=== PATIENT | female | born 1945 | race Caucasian/White ===

== ENCOUNTER 2021-09-14 10:32 | Day surgery (SDC) | payer MEDICARE, OTHER ==
[~2021-09-14] VITALS: Ht 160 cm; Wt 109.5 kg
[~2021-09-14 10:32] MED LIST: AMLODIPINE BESYL5 MG PO; ASPIRIN81 MG PO; METOPROLOL SUCC25 MG PO; NIACIN500 M1 PO
--- NOTE | 2021-09-14 10:50 | NUR ---
both nares swabbed for covid-19 without complication. sample taken to lab.
--- NOTE | 2021-09-14 15:02 | NUR ---
09/14/21 1502 Melissa Quinonez 1409 PT ARRIVED IN PACU SLEEPY WITH NO C/O'S. ABD SOFT AND PASSING FLATUS. 1420 SITTING UP IN BED SIPPING ON JUICE. 1430 DR AT BEDSIDE. ALL QUESTIONS ANSWERED. 1445 UP TO BATHROOM. VOIDED. BACK AT BEDSIDE GETTING DRESSED. 1455 DC INSTRUCTIONS GIVEN. LEFT VIA W/C.
--- NOTE | 2021-09-16 10:08 | OR ---
[facility] [address] [place], [place] [address] Signed DATE OF OPERATION: 09/14/2021 SURGEON: David Smith MD PREOPERATIVE DIAGNOSES: 1. History of diverticulitis on March 22, 2021 ([facility]). 2. COVID infection in July; asymptomatic, currently COVID test still positive. POSTOPERATIVE DIAGNOSIS: Sigmoid and left-sided diverticulosis, otherwise normal. PROCEDURE: Total colonoscopy to cecum with biopsy of cecum, sigmoid, and rectum. ANESTHESIA: Intravenous sedation, fentanyl 100 mcg and Versed 4 mg. INDICATIONS: This 76-year-old white woman is a patient of RIVKA Gonzalez. The patient lives in [place], [place]. Last summer, on March 22, 2021, she was evaluated for acute diverticulitis including left lower abdominal pain at [facility] including a CT scan, which showed findings typical of diverticular disease. She suffered COVID disease in July, but recovered promptly from that. She was referred for consideration of colonoscopy given interval time since last colonoscopy as well as her diverticular episode in March. She currently has no bleeding, diarrhea, or constipation. She has no fever, no taste or olfactory loss, although a preoperative COVID test was obtained and found to be positive. She is considered safe for colonoscopy at this time. The risks of bleeding, infection, and perforation related to colonoscopy was reviewed with her. She understands and wished to proceed. FINDINGS: The prep was good. Complete colonoscopy was undertaken of the cecum without question. Brief intubation of the ileum showed it to be normal. There were numerous small and large diverticula of the sigmoid and left colon. There was no actual evidence of polyps or cancer. She had no active colitis. Biopsies were obtained of the cecum, the sigmoid, and the rectum to assess for colitis, however. DESCRIPTION OF PROCEDURE: The patient was brought to the endoscopy suite and placed in lateral decubitus position. Notably, a preoperative COVID test was found to be positive, but given that timeframe Electronically Signed By: DAVID SMITH MD 09/16/21 1008 PATIENT NAME: MARSHALL JONES OPERATIVE REPORT DATE OF : 47 REPORT #: [id number] PHYSICIAN: DAVID SMITH MD PCP: IRIS MALIK [facility] REPORT IS CONFIDENTIAL AND NOT TO BE RELEASED WITHOUT AUTHORIZATION [facility] [address] [place] [id number] Signed of her infection, it was considered positive but noninfective and on that basis, proceeding with colonoscopy was deemed reasonable. She was given intravenous sedation to the point of slurred speech and nystagmus with full cardiopulmonary monitoring. Digital rectal examination was normal. An Olympus video colonoscope was passed into the rectum and manipulated throughout the colon noting numerous diverticula of the sigmoid and left colon. Scope was ultimately passed to the cecum. Brief intubation of the ileum was undertaken. The scope was withdrawn. 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 The scope was withdrawn and examination throughout showed no sign of abnormality until the left colon, where numerous diverticula were noted. Biopsies taken in the mid sigmoid. There was no clear evidence of colitis proper. Further withdrawal of scope allowed for retroflexed view, which was normal. Biopsy was taken from the rectum to assess for colitis. The scope was straightened, withdrawn, and removed. The patient was taken to the recovery room in good condition. CONCLUDING DIAGNOSIS: Significant diverticular changes. No evidence of malignancy or colitis. PLAN: Recommend high-fiber diet and/or consideration of a fiber supplement such as Metamucil powder one scoop daily. As she has no family history of colon cancer and no current findings of polyps, future colonoscopy would be considered on a as needed basis. The patient will return to the ongoing care of RIVKA Gonzalez. MD SAM Guadarrama/WILLISL /[id number] cc: RIVKA Amador Copies: IRIS MALIK Electronically Signed By: DAVID SMITH MD 09/16/21 1008 PATIENT NAME: MARSHALL JONES OPERATIVE REPORT DATE OF : 47 REPORT #: [id number] PHYSICIAN: DAVID SMITH MD PCP: IRIS MALIK REPORT IS CONFIDENTIAL AND NOT TO BE RELEASED WITHOUT AUTHORIZATION [facility] [address] [facility] [place], [place] [address] Signed ~ Electronically Signed By: DAVID SMITH MD 09/16/21 1008 PATIENT NAME: ROBERTMARSHALL OPERATIVE REPORT DATE OF : 47 REPORT #: [id number] PHYSICIAN: DAVID SMITH MD PCP: IRIS MALIK [facility] REPORT IS CONFIDENTIAL AND NOT TO BE RELEASED WITHOUT AUTHORIZATION
== END 2021-09-14 14:55 | disposition home or self-care (01) ==
LOC: OPS 10:32 → DS 10:32 → OPS 13:00
PROVIDERS: ATTEND Surgery
PROC: 0DBN8ZX Excision of Sigmoid Colon, Via Natural or Artificial Opening Endoscopic, Diagnostic (ICD-10-PCS; 2021-09-14)
PROC: 0DBH8ZX Excision of Cecum, Via Natural or Artificial Opening Endoscopic, Diagnostic (ICD-10-PCS; principal; 2021-09-14 13:00)
DX: K57.30 Diverticulosis of large intestine without perforation or abscess without bleeding (principal); K63.89 Other specified diseases of intestine; U07.1 COVID-19; I10 Essential (primary) hypertension; E11.9 Type 2 diabetes mellitus without complications; E66.9 Obesity, unspecified; Z68.41 Body mass index [BMI] 40.0-44.9, adult
CPT/HCPCS: 88305; 99153; C9803; G0500; J0690; J2250; J3010; U0003